=== PATIENT | female | born 1940 | race Caucasian/White ===

== ENCOUNTER 2017-01-14 03:59 | Inpatient (IN) ==
[2017-01-14] MEDS: 0.9 % Sodium Chloride 1,000 ML IVC SCH ×2 (06:45→17:05)
[2017-01-14 06:46] LABS: Basophils % 0.3 %; Eosinophils % 0.1 %; Hematocrit 43.6 % (35.3-44.9); Hemoglobin 14.9 g/dL (11.5-15.4); Immature Granulocytes % 0.6 % (0-4); Lymphocytes # 1.2 K/mcL (0.6-4.6); Lymphocytes % 9.8 %; Mean Corpuscular HGB Conc 34.2 g/dL (31.6-35.5); Mean Corpuscular Hemoglobin 28.9 pg (28.0-33.3); Mean Corpuscular Volume 84.5 fL (83.0-100.0); Mean Platelet Volume 9.2 fL (9.4-12.4); Monocytes # 0.7 K/mcL (0.0-1.3); Monocytes % 5.4 %; Platelet Count 236 K/mcL (140-400); Red Blood Count 5.16 M/mcL (3.82-4.97); Red Cell Distribution Width 13.1 % (11.5-14.5); Segmented Neutrophils % 83.8 %
[2017-01-14 06:51] LABS: INR 1.1
[2017-01-14 06:53] LABS: Activated Partial Thrombo Time 27.6 Seconds (26.0-36.0)
[2017-01-14 06:58] LABS: Albumin 3.6 g/dL (3.5-5.0); Albumin/Globulin Ratio 1.1 (1.1-2.2); Bilirubin,Total 0.7 mg/dL (0.2-1.2); Calcium 9.9 mg/dL (8.6-10.8); Globulin 3.3 g/dL (2.4-3.5); Potassium 3.9 mEq/L (3.5-4.5); Total Protein 6.9 g/dL (6.0-8.3)
[2017-01-14] MEDS ORDERED: *HR* Promethazine 25 MG/ML VIAL IVP ONE (07:21)
[2017-01-14] MEDS ORDERED: *HR* LORazepam 2 MG/ML VIAL IVP ONE (07:40)
--- NOTE | 2017-01-14 07:59 | Internal Med History&Physical ---
Date of Encounter: 01/14/17 Time of Encounter: 07:56 Assessment and Plan (1) Urinary tract infection Current visit: No Status: Acute Ceftriaxone. Check urine culture Qualifiers: Qualified Code(s): N39.0 - Urinary tract infection, site not specified (2) SBO (small bowel obstruction) Current visit: No Status: Acute Patient has prior history of multiple abdominal surgeries including colon surgery for colon cancer, appendectomy, hysterectomy and multiple surgeries for lysis of adhesions. We will keep NPO. NG tube section. Hydration. We will consult surgery. Symptomatic treatment for pain and nausea Internal Medicine - H&P: HPI Chief complaint: vomiting History of present illness: Ms. Edge is a 76 year old female with multiple medical problems including dementia, hypertension dyslipidemia in addition to history of colon cancer status post surgery has been in remission for the past 10 years or so and history of multiple prior episodes about obstruction mostly requiring surgery for licenses [employer] presents with vomiting. For the past 24 hours patient has been having constant vomiting. She complains of abdominal pain crampy nature and the periumbilical area she mentioned that her last bowel movement was yesterday. Daughter mentions that she is a poor historian because of her dementia. Workup outside emergency room showed evidence of urinary tract infection as well as small bowel obstruction. Patient is constantly retching and vomiting during my interview NG tube is being placed. No fever Past Med Surg Social Fam HX - Past Medical History Medical history: asthma, cancer, dementia, GERD, hyperlipidemia, hypertension Psychiatric history: no psych history - Past Surgical History Surgical History: appendectomy, hysterectomy - Social History Smoking Status: Never smoker Alcohol use: none Drug use: none - Family History Mother Hx Family Neuromuscular Disorders: Yes (dementia) Internal Medicine - H&P: Meds Bumetanide [Bumex] 1 mg PO DAILY 01/13/17 [History] Buspirone HCl [Buspar] 5 mg PO BID 01/13/17 [History] Docusate [Colace] 100 mg PO BID 01/13/17 [History] Donepezil HCl [Aricept] 10 mg PO HS 01/13/17 [History] Montelukast [Singulair] 10 mg PO DAILY 01/13/17 [History] Phenazopyridine HCl [Pyridium] 200 mg PO TIDAC #6 tab 01/13/17 [Rx] Potassium Gluconate 550 mg PO 01/13/17 [History] Ramipril [Altace] 10 mg PO DAILY 01/13/17 [History] Simvastatin [Zocor] 40 mg PO HS 01/13/17 [History] Trazodone HCl 50 mg PO HS 01/13/17 [History] cephALEXin [Keflex] 1,000 mg PO BID #40 capsule 01/13/17 [Rx] Allergies acetaminophen [From Percocet] Allergy (Verified 01/13/17 19:51) Hives Oxycodone [From Percocet] Allergy (Verified 01/13/17 19:51) Hives All Systems PM: A 10-system review of systems was performed and is negative for pertinent findings except as documented above in the HPI. Review of systems: 10 point review of systems is negative except for HPI - Constitutional Vitals: Temp Pulse Resp BP Pulse Ox 98.9 F 63 14 121/70 94 01/14/17 05:50 01/14/17 05:50 01/14/17 05:50 01/14/17 05:50 01/14/17 05:50 Exam: Gen.: patient is alert oriented times 3 not in distress. Cardiac: normal S1 S2 no additional sounds or murmurs chest: fair air entry. no active wheezing. No crackles or bronchial breathing. abdomen: diffuse tenderness in the periumbilical area neuro: no focal deficit Internal Med - H&P Results - Labs CBC & Chem 7: 01/14/17 06:29 01/14/17 06:29 Labs: Short CBC 01/14/17 Range/Units 06:29 WBC 12.0 H (4.3-11.1) K/mcL Hgb 14.9 (11.5-15.4) g/dL Hct 43.6 (35.3-44.9) % Plt Count 236 (140-400) K/mcL Neutrophils # 10.0 H (1.6-8.9) K/mcL BMP 01/14/17 06:29 Sodium 138 Potassium 3.9 Chloride 100 Carbon Dioxide 28 BUN 22 H Creatinine 1.10 Glucose 135 H Calcium 9.9 Liver Function 01/14/17 Range/Units 06:29 Total Bilirubin 0.7 (0.2-1.2) mg/dL AST 41 H (5-34) Units/L ALT 33 (0-55) Units/L Alkaline Phosphatase 24 L (38-126) Units/L Albumin 3.6 (3.5-5.0) g/dL - Impressions ITS Impressions KUB X-Ray 01/14/17 06:12 IMPRESSION: Small bowel obstruction again demonstrated. D/ / Pablo Reddy MD / Pablo Reddy MD Interpreting Provider: Pablo Reddy MD
[2017-01-14] MEDS: Pantoprazole 40 MG VIAL IVP SCH (09:36)
[2017-01-14] MEDS: *HR* Heparin 5,000 UNIT/ML VIAL SQ SCH ×2 (13:35→21:24)
--- NOTE | 2017-01-14 15:16 | General Surgery Consult Note ---
<Jody Alvarado - Last Filed: 01/14/17 15:49> Date of Encounter: 01/14/17 Time of Encounter: 15:04 Assessment and Plan (1) SBO (small bowel obstruction) Current Visit: No Status: Acute KUB demonstrates small all obstruction CT abdomen: High-grade small bowel obstruction with the transition point suspected in the presacral soft tissues. There is equalization the small bowel contents proximal to this obstruction. The distal ileal loops are decompressed. WBC 12 with a left shift, neutrophils 10 TBili 0.7, AST 41, ALT 33, alkaline phosphatase 24 Patient is afebrile, VSS The patient has a history of multiple abdominal surgeries, colon cancer with colon resection, SBO requiring surgery with surgical lysis of adhesions in the past Patient's daughter Amirah Hadley has POA. She states that she has available via telephone for any questions, concerns, issues that may arise during the patient's stay. She states that the patient has dementia that has been recently worsening. Plan for initial medical management. Agree with NG tube, IVF him on IV Protonix. Plan: -Keep NPO -NG LCWS -IVF at 100 mL per hour -Protonix 40 mg IV daily -Pain control -Monitor I/Os, VS -Serial abdominal exams, will need to reassess need for surgery at regular intervals -AM labs (2) Urinary tract infection Current Visit: No Status: Acute Continue ceftriaxone Qualifiers: Urinary tract infection type: acute cystitis Hematuria presence: with hematuria Qualified Code(s): N30.01 - Acute cystitis with hematuria History of Present Illness Consult date: 01/14/17 Reason for consult: abdominal pain (SBO) Requesting physician: Uche Pineda History of present illness: Ms. Edge is a 76-year-old female with a PMH of dementia, hypertension, dyslipidemia and colon cancer s/p bowel resection, and prior episodes of SBO mostly requiring surgery for lysis of adhesions. She presented to the ER at [place] complaining of nausea and vomiting with diffuse abdominal pain. She is a poor historian secondary to her dementia. The patient's daughter Amirah Hadley is POA. Her daughter states that the patient has been declining in her ability to perform her ADLs for about the past 3 weeks. She has noticed that she has been eating less food. She is unsure if it is secondary to a loss of appetite or the patient's ability to fix her own food. The patient is currently living alone with caregivers a few times per week and her daughter checking in on her. The patient had been seen early yesterday and he diagnosed with a UTI. Around 0100 the patient contacted her daughter stating that she had vomited all over and had severe abdominal pain. The daughter noticed copious amounts of orange vomit. She did not see any coffee-ground emesis, hematemesis, bloody stool, diarrhea, or melena in the patient's toilet. Daughter states that the patient had a bowel movement a few days ago while her mother was at her house, but she is unsure if she has had one since. The patient does have frequent constipation. She is supposed to take stool softeners but has not been taking them regularly. She denies recent fevers. The patient states currently that her mouth is dry and is requesting something to drink. She was treated with IVF, zofran, rocephin (for uti) in [place] ED. She was then transferred to [facility] for medical management and surgical consult. An NG tube placed upon admission, with brown fluid in the canister. The patient's daughter states that she has had about 7 different surgeries for adhesional lysis with last one being about 15 years ago. PSH of appendectomy, hysterectomy, colon resection. The patient has never smoked. The patient does have top dentures that are currently in place. Her bottom dentures have been taken out and the daughter is going to bring them home. Past Med Surg Social Fam HX - Past Medical History Medical history: asthma, cancer, dementia, GERD, hyperlipidemia, hypertension Psychiatric history: no psych history - Past Surgical History Surgical History: appendectomy, hysterectomy - Social History Smoking Status: Never smoker Alcohol use: none Drug use: none - Family History Mother Hx Family Neuromuscular Disorders: Yes (dementia) Medications and Allergies Bumetanide [Bumex] 1 mg PO TUTHSA 01/13/17 [History] Buspirone HCl [Buspar] 5 mg PO BID 01/13/17 [History] Donepezil HCl [Aricept] 10 mg PO HS 01/13/17 [History] Montelukast [Singulair] 10 mg PO DAILY 01/13/17 [History] RX: Docusate [Colace] 100 mg PO BID 01/13/17 [History] RX: Trazodone HCl 50 mg PO HS 01/13/17 [History] Ramipril [Altace] 10 mg PO DAILY 01/13/17 [History] Simvastatin [Zocor] 40 mg PO HS 01/13/17 [History] Potassium Gluconate [Potassium] 99 mg PO DAILY 01/14/17 [History] Allergies acetaminophen [From Percocet] Allergy (Verified 01/13/17 19:51) Hives Oxycodone [From Percocet] Allergy (Verified 01/13/17 19:51) Hives Review of Systems All systems PM: A 10-system review of systems was performed and is negative for pertinent findings except as documented above in the HPI. - Constitutional anorexia, no chills, no fever(s) - EENT Nose, mouth and throat: dry mouth - Cardiovascular no chest pain, no diaphoresis - Gastrointestinal bloating, change in bowel habits, constipation, nausea, vomiting, no coffee ground emesis, no diarrhea, no hematemesis, no melena - Genitourinary Genitourinary: dysuria - Neurological confusion - Psychiatric behavioral changes, change in appetite, confusion, memory loss General Surgery Exam Initial Vital Signs Temp Pulse Resp BP Pulse Ox 98.9 F 63 14 121/70 94 01/14/17 05:50 01/14/17 05:50 01/14/17 05:50 01/14/17 05:50 01/14/17 05:50 - General physical appearance well developed, well nourished, no distress, moderate pain - Eyes PERRL, normal ocular movement - ENT normal pinna, normal nares, normal mucosa, dentures (top), atraumatic, normocephalic - Neck no masses, trachea midline, no lymphadectomy, no venous distension - Respiratory normal expansion, normal respiratory effort, clear to auscultation - Cardiovascular Cardiovascular exam: Present: RRR, no murmurs/rubs/gallops - Abdomen Abdomen general surgery: Present: bowel sounds present (hypoactive), soft, distended, tender Abdominal Tenderness: Present: RLQ, LLQ - Integumentary Integumentary general surgery: Present: warm and dry, no abnormal pigmentation - Neurologic Present: normal sensation, disoriented, memory loss - Psychiatric Psychiatric general surgery: Present: speech is normal Exam Initial Vital Signs Temp Pulse Resp BP Pulse Ox 98.9 F 63 14 121/70 94 01/14/17 05:50 01/14/17 05:50 01/14/17 05:50 01/14/17 05:50 01/14/17 05:50 Results - Labs 01/14/17 06:29 01/14/17 06:29 Abnormal lab results WBC 12.0 K/mcL (4.3-11.1) H 01/14/17 06:29 RBC 5.16 M/mcL (3.82-4.97) H 01/14/17 06:29 MPV 9.2 fL (9.4-12.4) L 01/14/17 06:29 Neutrophils # 10.0 K/mcL (1.6-8.9) H 01/14/17 06:29 BUN 22 mg/dL (7-20) H 01/14/17 06:29 Est GFR ( Amer) 59 (> 60) L 01/14/17 06:29 Est GFR (Non-Af Amer) 49 (> 60) L 01/14/17 06:29 Glucose 135 mg/dL (70-99) H 01/14/17 06:29 POC Glucose 102 (58-89) H 01/14/17 11:33 AST 41 Units/L (5-34) H 01/14/17 06:29 Alkaline Phosphatase 24 Units/L (38-126) L 01/14/17 06:29 Diabetes panel 01/14/17 Range/Units 06:29 Sodium 138 (136-145) mEq/L Potassium 3.9 (3.5-4.5) mEq/L Chloride 100 (98-109) mEq/L Carbon Dioxide 28 (19-29) mEq/L BUN 22 H (7-20) mg/dL Creatinine 1.10 (0.57-1.11) mg/dL Glucose 135 H (70-99) mg/dL Calcium 9.9 (8.6-10.8) mg/dL AST 41 H (5-34) Units/L ALT 33 (0-55) Units/L Alkaline Phosphatase 24 L (38-126) Units/L Albumin 3.6 (3.5-5.0) g/dL Calcium panel 01/14/17 Range/Units 06:29 Calcium 9.9 (8.6-10.8) mg/dL Albumin 3.6 (3.5-5.0) g/dL Pituitary panel 01/14/17 Range/Units 06:29 Sodium 138 (136-145) mEq/L Potassium 3.9 (3.5-4.5) mEq/L Chloride 100 (98-109) mEq/L Carbon Dioxide 28 (19-29) mEq/L BUN 22 H (7-20) mg/dL Creatinine 1.10 (0.57-1.11) mg/dL Glucose 135 H (70-99) mg/dL Calcium 9.9 (8.6-10.8) mg/dL Adrenal panel 01/14/17 Range/Units 06:29 Sodium 138 (136-145) mEq/L Potassium 3.9 (3.5-4.5) mEq/L Chloride 100 (98-109) mEq/L Carbon Dioxide 28 (19-29) mEq/L BUN 22 H (7-20) mg/dL Creatinine 1.10 (0.57-1.11) mg/dL Glucose 135 H (70-99) mg/dL Calcium 9.9 (8.6-10.8) mg/dL Total Bilirubin 0.7 (0.2-1.2) mg/dL AST 41 H (5-34) Units/L ALT 33 (0-55) Units/L Alkaline Phosphatase 24 L (38-126) Units/L Albumin 3.6 (3.5-5.0) g/dL All other labs normal. - Imaging Abdominal x-ray: report reviewed, image reviewed (KUB X-Ray 01/14/17 06:12 IMPRESSION: Small bowel obstruction again demonstrated. D/ :59 / Pablo Reddy MD / Pablo Reddy MD Interpreting Provider: Pablo Reddy MD ) Consult Discharge Plan - Plan Referrals: Lemuel Torres MD [Primary Care Provider] - <[address] - Last Filed: 01/14/17 18:34> Date of Encounter: 01/14/17 Assessment and Plan (1) Urinary tract infection Current Visit: No Status: Acute Qualifiers: Urinary tract infection type: acute cystitis Hematuria presence: with hematuria Qualified Code(s): N30.01 - Acute cystitis with hematuria (2) SBO (small bowel obstruction) Current Visit: No Status: Acute discussed with daughter will give patient 3 days to try to resolve sbo on own, will continue conservative treatment at this time, ngt decompression HOB 30* prn pain control OOB to chair bid, ambulate (ok to clamp ngt and walk) serial abdominal exams kub to check ngt placement History of Present Illness History of present illness: patient very confused and information obtained from patients daughter, Amirah Hadley. Past Med Surg Social Fam HX - Past Medical History Source: obtained from family Medical history: cancer (colon and cervical) - Past Surgical History Surgical History: appendectomy, colectomy (sigmoid??), hysterectomy, other ( multiple lysis of adhesion (x 7 per daughter)) Review of Systems All systems PM: A 10-system review of systems was performed and is negative for pertinent findings except as documented above in the HPI. General Surgery Exam Initial Vital Signs Temp Pulse Resp BP Pulse Ox 98.9 F 63 14 121/70 94 01/14/17 05:50 01/14/17 05:50 01/14/17 05:50 01/14/17 05:50 01/14/17 05:50 - General physical appearance well developed, well nourished, no distress, moderate pain - Eyes PERRL, normal ocular movement - ENT normal mucosa, normocephalic - Neck trachea midline - Abdomen Abdomen general surgery: Present: bowel sounds present, soft, distended, tender (mildly mid and lower abdomen). Absent: guarding, rebound - Integumentary Integumentary general surgery: Present: warm and dry, no abnormal pigmentation - Neurologic Present: CN 2-12 grossly intact, disoriented, memory loss - Musculoskeletal Present: normal posture - Psychiatric Psychiatric general surgery: Present: oriented to person, speech is normal Exam Initial Vital Signs Temp Pulse Resp BP Pulse Ox 98.9 F 63 14 121/70 94 01/14/17 05:50 01/14/17 05:50 01/14/17 05:50 01/14/17 05:50 01/14/17 05:50 Results - Labs 01/14/17 06:29 01/14/17 06:29 Short CBC 01/14/17 Range/Units 06:29 WBC 12.0 H (4.3-11.1) K/mcL Hgb 14.9 (11.5-15.4) g/dL Hct 43.6 (35.3-44.9) % Plt Count 236 (140-400) K/mcL Neutrophils # 10.0 H (1.6-8.9) K/mcL BMP 01/14/17 Range/Units 06:29 Sodium 138 (136-145) mEq/L Potassium 3.9 (3.5-4.5) mEq/L Chloride 100 (98-109) mEq/L Carbon Dioxide 28 (19-29) mEq/L BUN 22 H (7-20) mg/dL Creatinine 1.10 (0.57-1.11) mg/dL Glucose 135 H (70-99) mg/dL Calcium 9.9 (8.6-10.8) mg/dL Liver Function 01/14/17 Range/Units 06:29 Total Bilirubin 0.7 (0.2-1.2) mg/dL AST 41 H (5-34) Units/L ALT 33 (0-55) Units/L Alkaline Phosphatase 24 L (38-126) Units/L Albumin 3.6 (3.5-5.0) g/dL Vital Signs Temp Pulse Resp BP Pulse Ox 01/14/17 15:17 98.8 F 64 18 137/74 95 01/14/17 14:24 64 18 136/68 96 01/14/17 11:17 98.8 F 64 18 136/68 96 01/14/17 05:50 98.9 F 63 14 121/70 94 Intake and Output 01/14/17 01/14/17 01/14/17 07:59 15:59 23:59 Intake Total 0 / 0 100 / 100 1000 / 1000 Output Total 0 / 0 0 / 0 850 / 850 Balance 0 / 0 100 / 100 150 / 150 Intake: IV Fluids 100 / 100 1000 / 1000 0.9 % Sodium Chloride 1, 1000 / 1000 000 ML @ 100 mls/hr IVC . Q10H JENN Rx#:[id number] Rocephin 1,000 MG In 100 / 100 Dextrose 5% (Minibag+) 100 ML 100 ML @ 200 mls/ hr IVPB DAILY JENN Rx#: [id number] Oral 0 / 0 0 / 0 0 / 0 Output: Urine 0 / 0 0 / 0 550 / 550 Gastric Drainage 300 / 300 Other: Meal NPO NPO Weight 61.49 kg Blood Glucose* 102 90 Patient Weight 01/14/17 23:59 Weight 61.49 kg - Imaging Abdominal x-ray: report reviewed, image reviewed CT scan - abdomen: report reviewed, image reviewed CT scan - pelvis: report reviewed, image reviewed - Attending Attestation I examined this patient and my medical decision-making was reviewed with the [employer] DOOR [employer]KER/PA/Advanced Practice Nurse/Resident Physician. I agree with the documented findings, disposition and treatment plan as described except to the extent set forth below.
[2017-01-14] MEDS ORDERED: Chloraseptic Spray 177 ML BOTTLE MM PRN (15:30)
[2017-01-14] MEDS: *HR* HYDROmorphone (PF) 1 MG/ML SYRINGE IVP PRN (21:38)
[2017-01-15] MEDS: 0.9 % Sodium Chloride 1,000 ML IVC SCH ×2 (03:20→14:01)
[2017-01-15] MEDS: *HR* HYDROmorphone (PF) 1 MG/ML SYRINGE IVP PRN ×3 (04:23→21:31)
[2017-01-15 05:55] LABS: Basophils # 0.1 K/mcL (0.0-0.2); Basophils % 0.8 %; Eosinophils # 0.1 K/mcL (0.0-0.6); Eosinophils % 1.5 %; Hematocrit 41.7 % (35.3-44.9); Hemoglobin 13.9 g/dL (11.5-15.4); Immature Granulocytes % 0.5 % (0-4); Lymphocytes # 1.4 K/mcL (0.6-4.6); Lymphocytes % 21.9 %; Mean Corpuscular HGB Conc 33.3 g/dL (31.6-35.5); Mean Corpuscular Hemoglobin 29.1 pg (28.0-33.3); Mean Corpuscular Volume 87.2 fL (83.0-100.0); Mean Platelet Volume 9.1 fL (9.4-12.4); Monocytes # 0.6 K/mcL (0.0-1.3); Neutrophils # 4.3 K/mcL (1.6-8.9); Platelet Count 206 K/mcL (140-400); Red Blood Count 4.78 M/mcL (3.82-4.97); Red Cell Distribution Width 13.2 % (11.5-14.5); Segmented Neutrophils % 66.3 %
[2017-01-15] MEDS: *HR* Heparin 5,000 UNIT/ML VIAL SQ SCH ×3 (05:56→20:53)
[2017-01-15 06:12] LABS: BUN/Creatinine Ratio 22 (6-26); Blood Urea Nitrogen 22 mg/dL (7-20); Calcium 8.5 mg/dL (8.6-10.8); Carbon Dioxide 30 mEq/L (19-29); Chloride 106 mEq/L (98-109); Glucose 92 mg/dL (70-99); Magnesium 1.9 mg/dL (1.6-2.6); Osmolality,Calculated 299 (280-300); Potassium 3.5 mEq/L (3.5-4.5); Sodium 143 mEq/L (136-145); eGFR For African Americans > 60 (> 60); eGFR For Non-African Americans 53 (> 60)
--- NOTE | 2017-01-15 07:59 | General Surgery Progress Note ---
Date of Encounter: 01/15/17 Time of Encounter: 12:40 - Assessment and Plan (1) SBO (small bowel obstruction) Current Visit: Yes Status: Acute The patient has a history of multiple abdominal surgeries, colon cancer with colon resection, SBO requiring surgery with surgical lysis of adhesions in the past. Patient's daughter Amirah Hadley has POA. Daughter states that she is available via telephone for any questions, concerns, issues that may arise during the patient's stay. Daughter reported that the patient has dementia that has been recently worsening over past 3 weeks. Daughter is making arrangements for patient to be placed in nursing facility/home possibly by this Friday01/17/17. Plan for initial medical management. On exam today, patient is pleasant, conversant, and alert oriented to self. She is afebrile, vital signs stable, NG tube is secured in place with gastric drainage noted to be greenish brown, Plan: -recommend clamp ngt and trial clears since pt had several bms to ensure patient tolerates. General surgery will sign-off. Please call if needed. (2) Urinary tract infection Current Visit: Yes Status: Acute Continue ceftriaxone Qualifiers: Urinary tract infection type: acute cystitis Hematuria presence: with hematuria Qualified Code(s): N30.01 - Acute cystitis with hematuria Subjective Patient reports: no new complaints, voiding w/o difficulty, bowel movement Narrative: Patient was seen and examined. Patient is very pleasant 76-year-old female with dementia who is a very poor historian. Patient reports no pain, however, patient does have pain to left lower quadrant on palpitation. Patient's main concern today is that she cannot find her teeth. She becomes tearful on exam when discussing the of her . patient sitting up in bed eating a clear liquid tray with ngt in place on LIWS. Per nursing patient had 3 bm's today. Patient states she is having a little abdominal discomfort in lower abdomen with palpation. No nausea. She is pleasantly confused and unable to state if passing flatus with her bm's. Objective Vital Signs - Last 8 Hours Temp Pulse Resp BP Pulse Ox 01/15/17 06:52 97.8 F 58 14 125/68 96 01/15/17 03:31 98.8 F 61 14 127/66 94 Intake and Output 01/14/17 01/14/17 01/15/17 15:59 23:59 07:59 Intake Total 100 / 100 1605 / 1605 659 / 659 Output Total 0 / 0 1925 / 1925 550 / 550 Balance 100 / 100 -320 / -320 109 / 109 Intake: IV Fluids 100 / 100 1605 / 1605 659 / 659 0.9 % Sodium Chloride 1, 1605 / 1605 659 / 659 000 ML @ 100 mls/hr IVC . Q10H JENN Rx#:[id number] Rocephin 1,000 MG In 100 / 100 Dextrose 5% (Minibag+) 100 ML 100 ML @ 200 mls/ hr IVPB DAILY JENN Rx#: [id number] Oral 0 / 0 0 / 0 0 / 0 Output: Urine 0 / 0 575 / 575 100 / 100 Urine/Stool Mix 500 / 500 Gastric Drainage 850 / 850 450 / 450 Other: Meal NPO NPO Stool Size Small Smear Stool Consistency liquid Stool Color Brown Brown # Bowel Movement Diapers 2 Weight 61.734 kg Blood Glucose* 102 85 86 Patient Weight 01/15/17 23:59 Weight 61.734 kg - General physical appearance well developed, no distress, moderate pain (Left lower quadrant tenderness to palpation) - Eyes PERRL, normal ocular movement - ENT normal mucosa, dentures (Patient is concerned because her dentures are missing however, the daughter took him home yesterday patient was reminded of this.), atraumatic, normocephalic - Neck Neck exam: trachea midline, no venous distension - Respiratory normal expansion, normal respiratory effort, clear to auscultation - Cardiovascular Cardiovascular exam: Present: RRR, no murmurs/rubs/gallops. Absent: JVD - Abdomen Abdomen: Present: bowel sounds present, soft, tender (minimal lower adominal discomfort with palpation) Abdominal Tenderness: LLQ - Genitourinary normal external genitalia - Integumentary no rash - Neurologic CN 2-12 grossly intact, normal sensation, confused (Patient with dementia) - Musculoskeletal normal posture - Psychiatric oriented to person, speech is normal - Labs 01/15/17 05:44 01/15/17 05:44 Short CBC 01/15/17 Range/Units 05:44 WBC 6.5 (4.3-11.1) K/mcL Hgb 13.9 (11.5-15.4) g/dL Hct 41.7 (35.3-44.9) % Plt Count 206 (140-400) K/mcL Neutrophils # 4.3 (1.6-8.9) K/mcL BMP 01/15/17 Range/Units 05:44 Sodium 143 (136-145) mEq/L Potassium 3.5 (3.5-4.5) mEq/L Chloride 106 (98-109) mEq/L Carbon Dioxide 30 H (19-29) mEq/L BUN 22 H (7-20) mg/dL Creatinine 1.02 (0.57-1.11) mg/dL Glucose 92 (70-99) mg/dL Calcium 8.5 L (8.6-10.8) mg/dL Vital Signs Temp Pulse Resp BP Pulse Ox 01/15/17 11:43 98.0 F 51 17 147/76 98 01/15/17 06:52 97.8 F 58 14 125/68 96 01/15/17 03:31 98.8 F 61 14 127/66 94 01/14/17 23:11 98.6 F 67 14 135/66 97 01/14/17 17:45 98.4 F 61 14 139/72 95 01/14/17 15:17 98.8 F 64 18 137/74 95 01/14/17 14:24 64 18 136/68 96 Intake and Output 01/14/17 01/15/17 01/15/17 23:59 07:59 15:59 Intake Total 1605 / 1605 659 / 659 100 / 100 Output Total 1925 / 1925 550 / 550 850 / 850 Balance -320 / -320 109 / 109 -750 / -750 Intake: IV Fluids 1605 / 1605 659 / 659 100 / 100 0.9 % Sodium Chloride 1, 1605 / 1605 659 / 659 000 ML @ 100 mls/hr IVC . Q10H JENN Rx#:[id number] Rocephin 1,000 MG In 100 / 100 Dextrose 5% (Minibag+) 100 ML 100 ML @ 200 mls/ hr IVPB DAILY JENN Rx#: [id number] Oral 0 / 0 0 / 0 0 / 0 Output: Urine 575 / 575 100 / 100 350 / 350 Urine/Stool Mix 500 / 500 Gastric Drainage 850 / 850 450 / 450 500 / 500 Other: Meal NPO NPO Stool Size Small Smear Small Stool Consistency liquid loose Stool Characteristics Mucoid Stool Color Brown Brown Brown # Bowel Movement Diapers 2 Weight 61.734 kg Blood Glucose* 85 86 82 Patient Weight 01/15/17 23:59 Weight 61.734 kg - VTE Documentation of Mechanical Device: Intermittent pneumatic compression device Consult Discharge Plan - Plan Referrals: Lemuel Torres MD [Primary Care Provider] - - Attending Attestation I examined this patient and my medical decision-making was reviewed with the NURSE COLLEGE/PA/Advanced Practice Nurse/Resident Physician. I agree with the documented findings, disposition and treatment plan as described except to the extent set forth below.
[2017-01-15] MEDS: Pantoprazole 40 MG VIAL IVP SCH (09:38)
--- NOTE | 2017-01-15 11:55 | Internal Med Progress Note ---
Date of Encounter: 01/15/17 Time of Encounter: 11:54 - Assessment and plan (1) Dementia Current Visit: Yes Status: Chronic Assessment and plan: Resume home medications. Qualifiers: Dementia type: Alzheimer's disease Alzheimer's disease onset: unspecified onset Dementia behavioral disturbance: without behavioral disturbance Qualified Code(s): G30.9 - Alzheimer's disease, unspecified; F02.80 - Dementia in other diseases classified elsewhere without behavioral disturbance (2) HTN (hypertension) Current Visit: Yes Status: Chronic Assessment and plan: Controlled, resume home medications. Qualifiers: Hypertension type: essential hypertension Qualified Code(s): I10 - Essential (primary) hypertension (3) Urinary tract infection Current Visit: Yes Status: Acute Assessment and plan: Continue ceftriaxone, follow up final urine cultures. Qualifiers: Urinary tract infection type: acute cystitis Hematuria presence: with hematuria Qualified Code(s): N30.01 - Acute cystitis with hematuria (4) SBO (small bowel obstruction) Current Visit: Yes Status: Acute Assessment and plan: Start the patient on clear liquid diet, continue to monitor with serial abdominal exams. We will advance diet as tolerated., - Subjective Interval history: Evaluated at bedside. 76-year-old female being managed for high-grade small bowel obstruction and urinary tract infection. Patient has advanced dementia and is pleasantly confused. Chart review reveals patient has had 4 bowel movements since admission, physical exam reveals patient has normal bowel sounds. General surgery on board. We will start patient on clear liquid diet and observe. As per OT/PT, discharge disposition is to longterm facility. - Constitutional Vitals: Temp Pulse Resp BP Pulse Ox 98.0 F 51 17 147/76 98 01/15/17 11:43 01/15/17 11:43 01/15/17 11:43 01/15/17 11:43 01/15/17 11:43 General appearance: Present: A&O X 1 - Head Head exam: Present: atraumatic, normocephalic - Eye Eye exam: Present: PERRL, conjuntiva pink, sclera anicteric Pupils: Present: PERRL - Neck Neck exam general surgery: Present: supple, trachea midline. Absent: lymphadenopathy - Respiratory Respiratory exam: Present: CTAB. Absent: accessory muscle use, rales, rhonchi, wheezes - Cardiovascular Cardiovascular exam: Present: RRR, +S1, +S2. Absent: diastolic murmur, gallop, rubs, systolic murmur - GI/Abdominal GI/Abdominal exam: Present: normal bowel sounds, soft, no peritoneal signs. Absent: distended, tenderness - Extremities Exam Extremities exam: Present: warm, radial pulses palpable and symetrical. Absent : calf tenderness, cyanotic, pedal edema - Neurological Exam Neurological exam: Present: alert, CN II-XII intact, no focal deficits. Absent : oriented X3, pronater drift, facial droop, speech deficit - Skin Skin exam: Present: dry, intact Internal Medicine: Result - Labs CBC & Chem 7: 01/15/17 05:44 01/15/17 05:44 Labs: Short CBC 01/15/17 Range/Units 05:44 WBC 6.5 (4.3-11.1) K/mcL Hgb 13.9 (11.5-15.4) g/dL Hct 41.7 (35.3-44.9) % Plt Count 206 (140-400) K/mcL Neutrophils # 4.3 (1.6-8.9) K/mcL BMP 01/15/17 05:44 Sodium 143 Potassium 3.5 Chloride 106 Carbon Dioxide 30 H BUN 22 H Creatinine 1.02 Glucose 92 Calcium 8.5 L - ABG Interpretation ABG results: PT/INR, D-dimer PT 12.0 Seconds (9.4-12.1) 01/14/17 06:29 - Impressions Impressions KUB X-Ray 01/14/17 18:13 IMPRESSION: A nasogastric tube has been placed in good position. D/ / Michael Glass MD / Michael Glass MD Interpreting Provider: Michael Glass MD - VTE Documentation of Mechanical Device: Intermittent pneumatic compression device Consult Discharge Plan - Plan Referrals: Lemuel Torres MD [Primary Care Provider] -
[2017-01-15] MEDS ORDERED: traZODone 50 MG TABLET PO SCH (21:00)
[2017-01-16] MEDS: *HR* Heparin 5,000 UNIT/ML VIAL SQ SCH ×2 (04:37→15:35)
[2017-01-16 05:47] LABS: BUN/Creatinine Ratio 17 (6-26); Blood Urea Nitrogen 15 mg/dL (7-20); Calcium 8.4 mg/dL (8.6-10.8); Carbon Dioxide 24 mEq/L (19-29); Chloride 103 mEq/L (98-109); Glucose 97 mg/dL (70-99); Osmolality,Calculated 287 (280-300); Potassium 3.2 mEq/L (3.5-4.5); Sodium 138 mEq/L (136-145); eGFR For African Americans > 60 (> 60); eGFR For Non-African Americans > 60 (> 60)
[2017-01-16] MEDS: Pantoprazole 40 MG VIAL IVP SCH (07:51)
[2017-01-16] MEDS: Lisinopril 20 MG TABLET PO SCH (07:52)
--- NOTE | 2017-01-16 09:21 | General Surgery Progress Note ---
Date of Encounter: 01/16/17 Time of Encounter: 09:19 - Assessment and Plan (1) SBO (small bowel obstruction) Current Visit: Yes Status: Acute KUB demonstrates small all obstruction CT abdomen: High-grade small bowel obstruction with the transition point suspected in the presacral soft tissues. There is equalization the small bowel contents proximal to this obstruction. The distal ileal loops are decompressed. Hemoglobin stable at 13.7 Patient is afebrile, VSS The patient has a history of multiple abdominal surgeries, colon cancer with colon resection, SBO requiring surgery with surgical lysis of adhesions in the past Patient's daughter Amirah Hadley has POA. She states that she has available via telephone for any questions, concerns, issues that may arise during the patient's stay. She states that the patient has dementia that has been recently worsening. NG tube has been removed, nursing notes note a bloody bowel movement overnight. Hemoglobin is stable. Abdomen is soft, nontender, nondistended. Bowel sounds are present. Plan: -Continue clear liquid diet. -IVF at 100 mL per hour -Pain control -Monitor I/Os, VS -AM labs (2) Urinary tract infection Current Visit: Yes Status: Acute Continue ceftriaxone Qualifiers: Urinary tract infection type: acute cystitis Hematuria presence: with hematuria Qualified Code(s): N30.01 - Acute cystitis with hematuria Subjective Narrative: Patient seen and examined. She asked why she is taking any food. Per nursing notes she had a bloody bowel movement overnight, hemoglobin is stable at 13.7. NG then removed. Patient is tolerating clear liquids. Objective Vital Signs - Last 8 Hours Temp Pulse Resp BP Pulse Ox 01/16/17 06:49 98.1 F 53 16 144/71 97 01/16/17 03:30 98.6 F 58 14 140/72 97 Intake and Output 01/15/17 01/16/17 01/16/17 23:59 07:59 15:59 Intake Total 1250 / 1250 1100 / 1100 Output Total 600 / 600 0 / 0 Balance 650 / 650 1100 / 1100 Intake: IV Fluids 1000 / 1000 Oral 1250 / 1250 100 / 100 Output: Urine 300 / 300 0 / 0 Stool 300 / 300 Other: Meal Dinner Stool Size Small Stool Consistency liquid Stool Color Bright Red Blood Dark Red Blood # Bowel Movements 1 Weight 67.132 kg Blood Glucose* 99 Patient Weight 01/16/17 23:59 Weight 67.132 kg - General physical appearance well developed, well nourished, no distress, no pain - ENT atraumatic, normocephalic - Neck Neck exam: trachea midline - Respiratory normal expansion, normal respiratory effort, clear to auscultation - Cardiovascular Cardiovascular exam: Present: RRR, no murmurs/rubs/gallops - Abdomen Abdomen: Present: bowel sounds present, soft, non tender. Absent: distended - Neurologic confused, disoriented, memory loss - Psychiatric other (Tearful) - Labs 01/16/17 04:37 01/16/17 04:37 Diabetes panel 01/16/17 Range/Units 04:37 Sodium 138 (136-145) mEq/L Potassium 3.2 L (3.5-4.5) mEq/L Chloride 103 (98-109) mEq/L Carbon Dioxide 24 (19-29) mEq/L BUN 15 (7-20) mg/dL Creatinine 0.89 (0.57-1.11) mg/dL Glucose 97 (70-99) mg/dL Calcium 8.4 L (8.6-10.8) mg/dL Calcium panel 01/16/17 Range/Units 04:37 Calcium 8.4 L (8.6-10.8) mg/dL Pituitary panel 01/16/17 Range/Units 04:37 Sodium 138 (136-145) mEq/L Potassium 3.2 L (3.5-4.5) mEq/L Chloride 103 (98-109) mEq/L Carbon Dioxide 24 (19-29) mEq/L BUN 15 (7-20) mg/dL Creatinine 0.89 (0.57-1.11) mg/dL Glucose 97 (70-99) mg/dL Calcium 8.4 L (8.6-10.8) mg/dL Adrenal panel 01/16/17 Range/Units 04:37 Sodium 138 (136-145) mEq/L Potassium 3.2 L (3.5-4.5) mEq/L Chloride 103 (98-109) mEq/L Carbon Dioxide 24 (19-29) mEq/L BUN 15 (7-20) mg/dL Creatinine 0.89 (0.57-1.11) mg/dL Glucose 97 (70-99) mg/dL Calcium 8.4 L (8.6-10.8) mg/dL - VTE Documentation of Mechanical Device: Intermittent pneumatic compression device Consult Discharge Plan - Plan Referrals: Lemuel Torres MD [Primary Care Provider] - - Attending Attestation I examined this patient and my medical decision-making was reviewed with the FUR BLOWING MACHINE ATTENDANT/PA/Advanced Practice Nurse/Resident Physician. I agree with the documented findings, disposition and treatment plan as described except to the extent set forth below. The patient was seen and evaluated on morning rounds. Her abdominal examination is negative her nasogastric tube is out and she is taking clear liquids diet. She had a bloody bowel movement overnight. We will continue to watch her hemoglobin and hematocrit for any signs of ongoing bleeding. If she clinically demonstrates recurrent bowel obstruction upper GI and small bowel follow-through will be required to identify the point of obstruction. Bharathi Manning MD FACS
--- NOTE | 2017-01-16 09:44 | Internal Med Progress Note ---
Date of Encounter: 01/16/17 Time of Encounter: 09:42 - Assessment and plan (1) Dementia Current Visit: Yes Status: Chronic Assessment and plan: Continue home medications. Qualifiers: Dementia type: Alzheimer's disease Alzheimer's disease onset: unspecified onset Dementia behavioral disturbance: without behavioral disturbance Qualified Code(s): G30.9 - Alzheimer's disease, unspecified; F02.80 - Dementia in other diseases classified elsewhere without behavioral disturbance (2) HTN (hypertension) Current Visit: Yes Status: Chronic Assessment and plan: Controlled,continue home medications. Qualifiers: Hypertension type: essential hypertension Qualified Code(s): I10 - Essential (primary) hypertension (3) Urinary tract infection Current Visit: Yes Status: Acute Assessment and plan: Continue ceftriaxone, E.cloi in urine, tavares-sensitive. Transition to po at time of discharge Qualifiers: Urinary tract infection type: acute cystitis Hematuria presence: with hematuria Qualified Code(s): N30.01 - Acute cystitis with hematuria (4) SBO (small bowel obstruction) Current Visit: Yes Status: Acute Assessment and plan: Advance diet - Subjective Interval history: 76-year-old female being managed for high-grade small bowel obstruction and urinary tract infection. Patient has advanced dementia and is pleasantly confused. No new complains today Per RN , had one episode of bloody bowel movement overnight unwitnessed Stat Hb is stable urine culture with E.coli sensitive to ceftriaxone Awaiting placement to SNF - Constitutional Vitals: Temp Pulse Resp BP Pulse Ox 98.1 F 53 16 144/71 97 01/16/17 06:49 01/16/17 06:49 01/16/17 06:49 01/16/17 06:49 01/16/17 06:49 General appearance: Present: A&O X 1 - Head Head exam: Present: atraumatic, normocephalic - Eye Eye exam: Present: PERRL, conjuntiva pink, sclera anicteric Pupils: Present: PERRL - Neck Neck exam general surgery: Present: supple, trachea midline. Absent: lymphadenopathy - Respiratory Respiratory exam: Present: CTAB. Absent: accessory muscle use, rales, rhonchi, wheezes - Cardiovascular Cardiovascular exam: Present: RRR, +S1, +S2. Absent: diastolic murmur, gallop, rubs, systolic murmur - GI/Abdominal GI/Abdominal exam: Present: normal bowel sounds, soft, no peritoneal signs. Absent: distended, tenderness - Extremities Exam Extremities exam: Present: warm, radial pulses palpable and symetrical. Absent : calf tenderness, cyanotic, pedal edema - Neurological Exam Neurological exam: Present: alert, CN II-XII intact, no focal deficits. Absent : oriented X3, pronater drift, facial droop, speech deficit - Skin Skin exam: Present: dry, intact Internal Medicine: Result - Labs CBC & Chem 7: 01/16/17 04:37 01/16/17 04:37 Labs: Short CBC 01/16/17 Range/Units 04:37 Hgb 13.7 (11.5-15.4) g/dL BMP 01/16/17 04:37 Sodium 138 Potassium 3.2 L Chloride 103 Carbon Dioxide 24 BUN 15 Creatinine 0.89 Glucose 97 Calcium 8.4 L - ABG Interpretation ABG results: PT/INR, D-dimer PT 12.0 Seconds (9.4-12.1) 01/14/17 06:29 - VTE Documentation of Mechanical Device: Intermittent pneumatic compression device Consult Discharge Plan - Plan Referrals: Lemuel Torres MD [Primary Care Provider] -
[2017-01-16] MEDS ORDERED: Acetaminophen 325 MG TABLET PO PRN (13:31)
[2017-01-16] MEDS ORDERED: *HR* LORazepam 0.5 MG TABLET PO ONE (16:55)
[2017-01-16] MEDS ORDERED: Haloperidol Lactate 5 MG/ML VIAL IVP ONE (19:21)
[2017-01-16] MEDS ORDERED: Haloperidol Lactate 5 MG/ML VIAL ONE (19:23)
[2017-01-16] MEDS ORDERED: Haloperidol Lactate 5 MG/ML VIAL IM ONE (19:31)
[2017-01-16] MEDS ORDERED: traZODone 50 MG TABLET PO SCH (21:00)
[2017-01-17] MEDS: *HR* Heparin 5,000 UNIT/ML VIAL SQ SCH ×2 (01:19→06:24)
[2017-01-17] MEDS ORDERED: Haloperidol Lactate 5 MG/ML VIAL IM ONE (02:19)
[2017-01-17] MEDS ORDERED: Cefdinir 300 MG CAPSULE PO SCH (09:00)
--- NOTE | 2017-01-17 09:10 | Physician Discharge Referral ---
ExtendedCare Referral Info Transfer To: SNF Provider in Charge: Dr. Landin Provider in Charge after Transfer: PCP Institutional Level of Care: Skilled - Diagnosis (1) Dementia Priority: Secondary Status: Chronic (2) HTN (hypertension) Priority: Secondary Status: Chronic (3) Urinary tract infection Priority: Primary Status: Acute (4) SBO (small bowel obstruction) Priority: Primary Status: Acute Prognosis: Fair Aware of Diagnosis: Family Aware of Prognosis: Family - Transfer Medications Home Medications: Bumetanide [Bumex] 1 mg PO TUTHSA 01/13/17 [History] Docusate [Colace] 100 mg PO BID 01/13/17 [History] Donepezil HCl [Aricept] 10 mg PO HS 01/13/17 [History] Montelukast [Singulair] 10 mg PO DAILY 01/13/17 [History] Ramipril [Altace] 10 mg PO DAILY 01/13/17 [History] Simvastatin [Zocor] 40 mg PO HS 01/13/17 [History] Potassium Gluconate [Potassium] 99 mg PO DAILY 01/14/17 [History] Buspirone HCl [Buspar] 7.5 mg PO BID #0 01/17/17 [Rx] Cefdinir [Omnicef] 300 mg PO BID capsule 01/17/17 [Rx] traZODone [TraZODone] 100 mg PO HS tablet 01/17/17 [Rx] Allergies/Adverse Reactions: Allergies acetaminophen [From Percocet] Allergy (Verified 01/13/17 19:51) Hives Oxycodone [From Percocet] Allergy (Verified 01/13/17 19:51) Hives - Respiratory Orders Smoking Cessation: Smoking cessation has been advised. For more information, call the [place] Tobacco Quit Line at 1-841-KRLR-NOW. - Advance Directives Code Status: DNR-Arrest/Don't Intubate - Mobility Orders Other (As per PT. High fall risk) - Rehabiliation Orders Rehab Potential: Fair - Diet Orders Cardiac CERTIFICATION: I certify that the transfer of the above named patient to an Extended Care Facility is necessary for the continuing treatment of the diagnosis listed. The above information is true and accurate reflection of patient's current condition. Confidential - Redisclosure prohibited without a patient's written consent.
--- NOTE | 2017-01-17 09:11 | Discharge Summary ---
Date of Encounter: 01/17/17 Time of Encounter: 09:10 - Discharge Diagnosis (1) Dementia Priority: Secondary Status: Chronic Qualifiers: Dementia type: Alzheimer's disease Alzheimer's disease onset: unspecified onset Dementia behavioral disturbance: without behavioral disturbance Qualified Code(s): G30.9 - Alzheimer's disease, unspecified; F02.80 - Dementia in other diseases classified elsewhere without behavioral disturbance (2) HTN (hypertension) Priority: Secondary Status: Chronic Qualifiers: Hypertension type: essential hypertension Qualified Code(s): I10 - Essential (primary) hypertension (3) Urinary tract infection Priority: Primary Status: Acute Qualifiers: Urinary tract infection type: acute cystitis Hematuria presence: with hematuria Qualified Code(s): N30.01 - Acute cystitis with hematuria (4) SBO (small bowel obstruction) Priority: Primary Status: Acute - Discharge Medications Home Medications: Bumetanide [Bumex] 1 mg PO TUTHSA 01/13/17 [History] Docusate [Colace] 100 mg PO BID 01/13/17 [History] Donepezil HCl [Aricept] 10 mg PO HS 01/13/17 [History] Montelukast [Singulair] 10 mg PO DAILY 01/13/17 [History] Ramipril [Altace] 10 mg PO DAILY 01/13/17 [History] Simvastatin [Zocor] 40 mg PO HS 01/13/17 [History] Potassium Gluconate [Potassium] 99 mg PO DAILY 01/14/17 [History] Buspirone HCl [Buspar] 7.5 mg PO BID #0 01/17/17 [Rx] Cefdinir [Omnicef] 300 mg PO BID capsule 01/17/17 [Rx] traZODone [TraZODone] 100 mg PO HS tablet 01/17/17 [Rx] Allergies/Adverse Reactions: Allergies acetaminophen [From Percocet] Allergy (Verified 01/13/17 19:51) Hives Oxycodone [From Percocet] Allergy (Verified 01/13/17 19:51) Hives Date of admission: 01/14/17 07:49 Primary care physician: Lemuel Torres MD Consults: 01/14/17 06:33 Consult to Nutrition [CONS] Routine Comment: Consulting Provider: NUTRITION Reason for Dietary Consult: MST Score Consult to [employer] [CONS] Routine Reason for SW Consult: ECF placement, living will advance directives 01/14/17 07:49 Consult to Occupational Therapy [CONS] Routine Comment: Evaluate, develop and implement POC Reason for Consult: weakness Consult to Physical Therapy [CONS] Routine Comment: Evaluate, develop and implement POC Reason for Consult: weakness Discharging clinician: Theodore Landin Anticipated date of discharge: 01/17/17 - Patient Status Disposition: Transfer SNF Condition: Fair Functional capacity at discharge: independent ambulation Overall status at discharge: patient is progressing back to baseline - Discharge Instructions Follow Up With: Lemuel Torres MD [Primary Care Provider] - - Diet and Activity Activity: as per physical therapy, resume usual activities as tolerated Diet: low salt diet Interval History: See below. Hospital course: Ms. Edge is a 76 year old female with PMH of asthma, colon cancer s/p resection , hx of SBO, , dementia, anxiety, GERD, hyperlipidemia, hypertension Patient presented to [facility] with complains of persistent nausea and vomiting for 24 hours. She had associated abdominal pain that was crampy in nature and periumbilical in location. Her last bowel movement prior to24 hours before presentation patient was a poor historian due to her baseline dementia. Patient had no fever or chills. Workup on admission revealed evidence of urinary tract infection without pyelonephritis, and high-grade small bowel obstruction on CAT scan. she had mild leukocytosis, chemistry and liver function tests were unremarkable she was admitted and placed on bowel rest, NG tube suction, intravenous fluid hydration, antiemetics, IV antibiotics and nothing by mouth. she was evaluated by surgery and conservative management was continued, On second day of admission, patient began having BM, initially watery stool and now brown stools. Nausea and vomiting has resolved her diet had bee advanced and she is tolerating orally. Urine culture reveals pansensitive Escherichia coli . Patient also developed a few episodes of agitation from her dementia. She is stable seen at bedside this morning. She will be discharged on oral antibiotics and her medications. Buspirone has been increased from 5mg bid to 7.5mg bid Follow up with PCP after discharge from SNF, or SNF PCP - Time Spent with Patient Total time spent providing and/or coordinating discharge services: Greater than 30 minutes (40 minutes spent on chart review, patient encounter, medation, discussion with team about d prescriptions, and documentation.) - Constitutional Vitals: Temp Pulse Resp BP Pulse Ox 98.7 F 63 18 132/86 95 01/17/17 06:55 01/17/17 06:55 01/17/17 06:55 01/17/17 06:55 01/17/17 06:55 General appearance: Present: A&O X 1, pleasant, no acute distress - Head Head exam: Present: atraumatic, normocephalic - Eye Eye exam: Present: PERRL, conjuntiva pink, sclera anicteric Pupils: Present: PERRL - Neck Neck exam general surgery: Present: supple, trachea midline. Absent: lymphadenopathy - Respiratory Respiratory exam: Present: CTAB. Absent: accessory muscle use, rales, rhonchi, wheezes - Cardiovascular Cardiovascular exam: Present: RRR, +S1, +S2. Absent: diastolic murmur, gallop, rubs, systolic murmur - GI/Abdominal GI/Abdominal exam: Present: normal bowel sounds, soft, no peritoneal signs. Absent: distended, tenderness - Extremities Exam Extremities exam: Present: warm, radial pulses palpable and symetrical. Absent : calf tenderness, cyanotic, pedal edema - Neurological Exam Neurological exam: Present: alert, CN II-XII intact, no focal deficits. Absent : oriented X3, pronater drift, facial droop, speech deficit - Skin Skin exam: Present: dry, intact - VTE Documentation of Mechanical Device: Intermittent pneumatic compression device
[2017-01-17] MEDS: Lisinopril 20 MG TABLET PO SCH (09:15)
[2017-01-17] MEDS: Pantoprazole 40 MG VIAL IVP SCH ×2 (09:15→09:26)
--- NOTE | 2017-01-17 09:43 | General Surgery Progress Note ---
Date of Encounter: 01/17/17 Time of Encounter: 12:30 - Assessment and Plan (1) SBO (small bowel obstruction) Current Visit: Yes Status: Acute KUB demonstrates small all obstruction CT abdomen: High-grade small bowel obstruction with the transition point suspected in the presacral soft tissues. There is equalization the small bowel contents proximal to this obstruction. The distal ileal loops are decompressed. Hemoglobin stable Patient is afebrile, VSS The patient has a history of multiple abdominal surgeries, colon cancer with colon resection, SBO requiring surgery with surgical lysis of adhesions in the past Patient's daughter Amirah Hadley has POA. She states that she has available via telephone for any questions, concerns, issues that may arise during the patient's stay. She states that the patient has dementia that has been recently worsening. NG tube has been removed, nursing notes note a bloody bowel movement overnight. Hemoglobin is stable. Abdomen is soft, nontender, nondistended. Bowel sounds are present. Plan: -patient is tolerating a cardiac diet, having bowel function and no abdominal pain, general surgery will signoff, please call if needed (2) Urinary tract infection Current Visit: Yes Status: Acute Continue ceftriaxone Qualifiers: Urinary tract infection type: acute cystitis Hematuria presence: with hematuria Qualified Code(s): N30.01 - Acute cystitis with hematuria Subjective Narrative: Patient was seen and examined. She is currently tolerating a cardiac diet. He is having bowel movements and passing gas. She denies any abdominal pain. patient denies abdominal pain or nausea, she told me she ate a good lunch. Unsure if passing flatus or bm. Objective Vital Signs - Last 8 Hours Temp Pulse Resp BP Pulse Ox 01/17/17 06:55 98.7 F 63 18 132/86 95 01/17/17 04:34 98.3 F 67 16 163/74 99 Intake and Output 01/16/17 01/17/17 01/17/17 23:59 07:59 15:59 Intake Total 0 / 0 0 / 0 Output Total 200 / 200 Balance 0 / 0 -200 / -200 Intake: Oral 0 / 0 0 / 0 Output: Urine 200 / 200 Other: Stool Size Small Small Stool Consistency liquid loose Stool Color Georges Colored Brown Georges Colored # Voids 1 # Bowel Movements 1 Weight 67.6 kg Patient Weight 01/17/17 23:59 Weight 67.6 kg - General physical appearance well developed, well nourished, no distress, no pain - Eyes PERRL, normal ocular movement - ENT normal mucosa, atraumatic, normocephalic - Neck Neck exam: trachea midline - Respiratory normal expansion, normal respiratory effort, clear to auscultation - Cardiovascular Cardiovascular exam: Present: RRR, no murmurs/rubs/gallops - Abdomen Abdomen: Present: bowel sounds present, soft, non tender. Absent: distended, guarding, rebound - Integumentary no rash, no growths, no abnormal pigmentation - Neurologic CN 2-12 grossly intact, disoriented, memory loss - Musculoskeletal normal posture - Psychiatric oriented to person, speech is normal - Labs 01/16/17 04:37 01/16/17 04:37 Vital Signs Temp Pulse Resp BP Pulse Ox 01/17/17 10:44 98.3 F 59 14 150/75 98 01/17/17 06:55 98.7 F 63 18 132/86 95 01/17/17 04:34 98.3 F 67 16 163/74 99 01/16/17 23:58 97.9 F 65 16 136/74 93 01/16/17 19:41 98.9 F 78 15 167/70 95 01/16/17 15:00 98.7 F 60 16 125/71 98 Intake and Output 01/16/17 01/17/17 01/17/17 23:59 07:59 15:59 Intake Total 0 / 0 0 / 0 120 / 120 Output Total 200 / 200 0 / 0 Balance 0 / 0 -200 / -200 120 / 120 Intake: Oral 0 / 0 0 / 0 120 / 120 Output: Urine 200 / 200 0 / 0 Other: Meal Lunch Percent of Meal Consumed 50% Stool Size Small Small Stool Consistency liquid loose Stool Color Georges Colored Brown Georges Colored # Voids 1 # Bowel Movements 1 Weight 67.6 kg Patient Weight 01/17/17 23:59 Weight 67.6 kg - VTE Documentation of Mechanical Device: Intermittent pneumatic compression device Consult Discharge Plan - Plan Referrals: Lemuel Torres MD [Primary Care Provider] - - Attending Attestation I examined this patient and my medical decision-making was reviewed with the TOOL AND DIE INSPECTOR/PA/Advanced Practice Nurse/Resident Physician. I agree with the documented findings, disposition and treatment plan as described except to the extent set forth below.
[2017-01-17 10:44] VITALS: BP 150/75
== END 2017-01-17 13:50 | DRG 389 ==
LOC: 3ANU → SUATTDRO 07:49
PROVIDERS: ADMIT Pediatrics; ATTEND Internal Medicine